=== PATIENT | female | born 1960 | race Caucasian/White ===

== ENCOUNTER → 2016-12-05 | Outpatient (CLI) | payer OTHER ==
[2015-09-23 08:57] VITALS: BP 110/83
[~2016-12-05] MED LIST: ASCO-78 PO; ASPI81TA2 PO; CLON0.5T3 PO; CYAN500T17 PO; MAGN1TAB7 PO; MULT-212 PO; OMEG500C3 PO; OMEP20CA9 PO; SPIR25TA3 PO; TOPI-24 PO
--- NOTE | 2016-12-05 10:56 | RAD ---
Ultrasound right breast 12/05/2016 Clinical history: Right breast pain. Technique: A real-time ultrasound examination of the right breast at the 10:00 position in the area of the patient's pain was performed. Multiple images were obtained. Findings: Comparison is made to the patient's diagnostic mammogram performed earlier today. No solid or cystic mass is seen within the visualized portions of the right breast. Impression: Negative study.
--- NOTE | 2016-12-05 11:06 | RAD ---
DATE: 12/05/2016 EXAM: DIGITAL DIAGNOSTIC BILATERAL HISTORY: Right upper quadrant breast pain for 2 months. COMPARISON: 03/23/2011 This study was interpreted with the benefit of Computerized Aided Detection (CAD). FINDINGS: Digital MLO and CC mammograms of both breasts were obtained. An additional CC digital mammogram of the right breast was obtained. Comparison study is dated 03/23/2011. The breast parenchyma is composed of scattered fibroglandular densities which can obscure a lesion on mammography (breast density code B). Benign-appearing calcifications are seen within both breasts. No spiculated mass is seen. No malignant appearing calcification or area of architectural distortion is noted. Since the previous examination there has been no significant interval change. IMPRESSION: BI-RADS Category 1, negative. There is no mammographic evidence malignancy. Routine yearly screening mammography is recommended for follow-up. BI-RADS CATEGORY: 1 NEGATIVE RECOMMENDED FOLLOW-UP: 12M 12 MONTH FOLLOW-UP PQRS compliance statement: Patient information was entered into a reminder system with a target due date 12/05/2017 for the next mammogram. Mammography is a sensitive method for finding small breast cancers, but it does not detect them all and is not a substitute for careful clinical examination. A negative mammogram does not negate a clinically suspicious finding and should not result in delay in biopsying a clinically suspicious abnormality. "Our facility is accredited by the [employer] Mammography Program."
== END | disposition home or self-care (01) ==
LOC: MAMMO 09:24
PROVIDERS: ATTEND Family Medicine
DX: N64.4 Mastodynia (principal)
CPT/HCPCS: 76641; G0204; 77066

== ENCOUNTER → 2017-06-18 | Outpatient (CLI) | payer OTHER ==
[2015-09-23 08:57] VITALS: BP 110/83
[~2017-06-18] MED LIST changes: +ASPI-630 PO; -ASPI81TA2 PO; +CONTRAST GIVEN MC PRN; +IOHEXOL 240 MG/ML 50ML VIAL. ONE; +IOHEXOL 240 MG/ML 50ML VIAL. PO ONE; +IOHEXOL 300 MG/ML 75 ML VIAL IV ONE; +IOHEXOL 300 MG/ML 75 ML VIAL ONE; -TOPI-24 PO; +TOPI25TA7 PO
--- NOTE | 2017-06-18 16:54 | RAD ---
Indication generalized abdominal pain. Axial images through the abdomen and pelvis were obtained. Both oral and IV contrast were administered. Approximately 75 cc of Omnipaque 300 was administered intravenously. Note is made of a previous examination 08/30/2015. The lung bases are clear. The liver and spleen appear unremarkable. The gallbladder appears grossly normal. No pancreatic abnormality is seen. The adrenal glands appear unremarkable. The kidneys appear normal apart from a minute left renal calculus. An acute finding in the abdomen is not seen. No acute or significant finding is seen in the pelvis. IMPRESSION: No acute finding seen in the abdomen or pelvis PQRS Compliance Statement: One or more of the following individualized dose reduction techniques were utilized for this examination: 1. Automated exposure control 2. Adjustment of the mA and/or kV according to patient size 3. Use of iterative reconstruction technique
== END | disposition home or self-care (01) ==
LOC: CT 09:45
PROVIDERS: ATTEND Family Medicine
DX: R10.84 Generalized abdominal pain (principal); Z68.29 Body mass index [BMI] 29.0-29.9, adult
CPT/HCPCS: 74177; Q9966; Q9967

== ENCOUNTER → 2017-07-06 | Outpatient (CLI) | payer OTHER ==
[2015-09-23 08:57] VITALS: BP 110/83
[~2017-07-06] MED LIST changes: -CONTRAST GIVEN MC PRN; -IOHEXOL 240 MG/ML 50ML VIAL. ONE; -IOHEXOL 240 MG/ML 50ML VIAL. PO ONE; -IOHEXOL 300 MG/ML 75 ML VIAL IV ONE; -IOHEXOL 300 MG/ML 75 ML VIAL ONE
--- NOTE | 2017-07-06 13:13 | RAD ---
MR of the right knee Indication: Pain after a fall 3 weeks ago. Technique: The standard multiplanar sequences are obtained. Findings: Moderate motion degradation. Medial meniscus: Signal on the sagittal images suggest a tear, but is likely exaggerated by the motion degradation. No definite confirmation on the coronal images. Lateral meniscus: Signal within the anterior horn of the lateral meniscus, likely exaggerated by the motion, but suspicious for tear. Anterior cruciate ligament: Intact Posterior cruciate ligament: Intact Medial collateral ligament: Intact. Iliotibial band: Intact. Posterolateral structures: Fibular collateral ligament, biceps tendon and popliteus tendon are intact. Extensor mechanism: Intact. Fluid: Moderate joint effusion. Articular cartilage: Limited detail due to the motion. 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 Bones: Mild cystic changes at the proximal tibia. No acute fracture. No aggressive bone destruction. Soft tissue: Unremarkable Impression: 1. Moderate motion degradation limits meniscal exam. There is signal in the medial meniscus, and at the anterior horn of the lateral meniscus, suspicious for tears, although there is a risk of false-positive diagnosis. 2. Primary osteoarthritis. Electronically signed by: Jacoby Garcias MD (07/06/2017 1:09 PM) [facility]
== END | disposition home or self-care (01) ==
LOC: MRI 11:38
PROVIDERS: ATTEND Family Medicine
DX: M23.91 Unspecified internal derangement of right knee (principal); M17.11 Unilateral primary osteoarthritis, right knee; M25.461 Effusion, right knee; M94.261 Chondromalacia, right knee
CPT/HCPCS: 73721